=== PATIENT | female | born 1965 | race Two or more races ===

== ENCOUNTER → 2018-01-27 | Outpatient (CLI) | payer BC ==
[~2018-01-27] VITALS: Ht 160 cm; Wt 82.1 kg
[~2018-01-27] MED LIST: ONE DAILY FOR1 EAC3 PO; SYNTHROID25 MCG PO; VITAMIN D32000 UNI1 PO; XALATAN2.5 ML BOTH EYES; ZESTRIL40 MG PO; ZOCOR20 MG PO
== END | disposition home or self-care (01) ==
LOC: AMB 07:18
DX: Z12.11 Encounter for screening for malignant neoplasm of colon (principal); D12.2 Benign neoplasm of ascending colon; D12.3 Benign neoplasm of transverse colon; D12.4 Benign neoplasm of descending colon; D12.5 Benign neoplasm of sigmoid colon; K63.3 Ulcer of intestine; K64.8 Other hemorrhoids; I10 Essential (primary) hypertension; R09.89 Other specified symptoms and signs involving the circulatory and respiratory systems; H40.9 Unspecified glaucoma; E78.00 Pure hypercholesterolemia, unspecified; Z68.33 Body mass index [BMI] 33.0-33.9, adult; E03.9 Hypothyroidism, unspecified; E55.9 Vitamin D deficiency, unspecified; E66.9 Obesity, unspecified; Z82.49 Family history of ischemic heart disease and other diseases of the circulatory system; Z88.2 Allergy status to sulfonamides
CPT/HCPCS: 88305; 93005